=== PATIENT | male | born 2000 | race Caucasian/White ===

== ENCOUNTER 2023-03-05 18:28 | Inpatient (IN) | payer SELFPAY ==
[~2023-03-05] VITALS: Ht 172.7 cm; Wt 138.8 kg
[2023-03-06] MEDS ORDERED: SODIUM CHLORIDE 0.9% 1,000 ML IV ONE ×2 (00:15)
[2023-03-06 00:20] LABS: BASOPHILS % 0.1 % (0.0-2.0); DIFFERENTIAL COMMENT 0; EOSINOPHILS % 0.4 % (0.0-5.0); HEMATOCRIT. 43.8 % (42.0-52.0); HEMOGLOBIN. 14.4 g/dL (14.0-18.0); LYMPHOCYTES % 12.1 % (20.0-50.0); MEAN CORPUSCULAR HEMOGLOBIN 27.6 pg (28.0-32.0); MEAN CORPUSCULAR HGB CONC 32.9 g/dL (31.0-37.0); MEAN CORPUSCULAR VOLUME 83.8 fL (80.0-94.0); MEAN PLATELET VOLUME 12.4 fl (7.4-10.4); MONOCYTES % 10.7 % (2.0-8.0); NEUTROPHILS % 76.7 % (40.0-76.0); PLATELET 202 x1000/uL (130-400); RED BLOOD CELL COUNT 5.23 mill/uL (4.7-6.1); RED CELL DISTRIBUTION WIDTH 13.8 % (11.6-14.6); WHITE BLOOD COUNT 16.7 x1000/uL (4.5-11.0)
[2023-03-06 00:36] LABS: ALANINE AMINOTRANSFERASE 27 IU/L (10-49); ALBUMIN 4.6 g/dL (3.2-4.8); ASPARTATE AMINOTRANSFERASE 17 IU/L (<34); BILIRUBIN TOTAL 0.8 mg/dL (0.1-1.0); CALCIUM 9.1 mg/dL (8.7-10.4); CARBON DIOXIDE 23 mEq/L (21-32); CHLORIDE 101 mEq/L (98-107); CREATININE 0.8 mg/dL (0.6-1.3); GLUCOSE 117 mg/dL (70-105); PROTEIN TOTAL 8.7 g/dL (6.0-8.3); SODIUM 134 mEq/L (136-145); UREA NITROGEN BLOOD 9 mg/dL (9-23)
[2023-03-06 00:46] LABS: TROPONIN I HIGH SENSITIVITY < 4 ng/L (3.0-53)
[2023-03-06] MEDS ORDERED: AZITHROMYCIN 500MG/250ML 250 ML IV ONE (04:15)
[2023-03-06] MEDS ORDERED: CEFTRIAXONE 1GM PREMIX 50 ML IV ONE (04:15)
[2023-03-06] MEDS ORDERED: KETOROLAC 15MG/ML VIAL IV ONE (04:15)
[2023-03-06] MEDS ORDERED: GUAIFENESIN 200MG/10ML SUGAR FREE UDC PO PRN (08:00)
[2023-03-06] MEDS ORDERED: TRAMADOL 50MG TABLET PO PRN (08:00)
[2023-03-06] MEDS ORDERED: ACETAMINOPHEN 325MG TABLET PO PRN (08:00)
[2023-03-06] MEDS ORDERED: DOCUSATE SODIUM 100MG CAPSULE PO PRN (08:00)
[2023-03-06] MEDS ORDERED: SODIUM CHLORIDE 0.9% 1,000 ML IV SCH (08:00)
[2023-03-06] MEDS ORDERED: ONDANSETRON HCL 4MG/2ML INJ IV PRN (08:00)
[2023-03-06 09:00] VITALS: BP 103/64; PULSE 114; RESP 20; TEMP 99.3
[2023-03-06] MEDS: METOPROLOL TARTRATE 25MG TABLET PO SCH ×2 (11:36→18:08)
[2023-03-06 12:00] VITALS: BP 121/60; PULSE 101; RESP 22; TEMP 97
[2023-03-06 12:33] LABS: HEMATOCRIT. 40.1 % (42.0-52.0); HEMOGLOBIN. 13.1 g/dL (14.0-18.0); MEAN CORPUSCULAR HEMOGLOBIN 27.6 pg (28.0-32.0); MEAN CORPUSCULAR HGB CONC 32.7 g/dL (31.0-37.0); MEAN CORPUSCULAR VOLUME 84.4 fL (80.0-94.0); MEAN PLATELET VOLUME 12.3 fl (7.4-10.4); PLATELET 162 x1000/uL (130-400); RED BLOOD CELL COUNT 4.75 mill/uL (4.7-6.1); RED CELL DISTRIBUTION WIDTH 13.6 % (11.6-14.6); WHITE BLOOD COUNT 13.4 x1000/uL (4.5-11.0)
[2023-03-06 13:04] LABS: DIFFERENTIAL COMMENT 1
[2023-03-06 14:06] LABS: ALANINE AMINOTRANSFERASE 22 IU/L (10-49); ALBUMIN 4.3 g/dL (3.2-4.8); ASPARTATE AMINOTRANSFERASE 13 IU/L (<34); BILIRUBIN TOTAL 0.8 mg/dL (0.1-1.0); CALCIUM 8.9 mg/dL (8.7-10.4); CHLORIDE 104 mEq/L (98-107); CREATININE 0.7 mg/dL (0.6-1.3); GLUCOSE 93 mg/dL (70-105); POTASSIUM 3.8 mEq/L (3.5-5.1); PROTEIN TOTAL 7.1 g/dL (6.0-8.3); SODIUM 137 mEq/L (136-145); UREA NITROGEN BLOOD 9 mg/dL (9-23)
[2023-03-06 15:06] LABS: CARBON DIOXIDE 20 mEq/L (21-32)
[2023-03-06 16:00] VITALS: BP 125/57; PULSE 100; RESP 22; TEMP 98
[2023-03-06] MEDS ORDERED: NALOXONE HCL 0.4MG/ML VIAL IV PRN (16:45)
[2023-03-06 18:23] VITALS: BP 121/60; PULSE 105; TEMP 97.9; O2SAT 99
[2023-03-06 23:16] LABS: PLATELET ESTIMATE NORMAL
[2023-03-07] MEDS ORDERED: CEFTRIAXONE 1,000 MG in DEXTROSE 5% WATER 50 ML IV SCH (06:00)
[2023-03-07] MEDS ORDERED: CEFTRIAXONE 1GM PREMIX 50 ML IV SCH (06:00)
[2023-03-07] MEDS ORDERED: AZITHROMYCIN 500MG/250ML 250 ML IV SCH ×2 (06:00)
== END 2023-03-06 19:00 | disposition home or self-care (01) | DRG 145 ==
LOC: ER 18:28 → 8WST 03-06 04:05 → EDBEDREQTM 03-06 04:08 → EDBEDREQ 03-06 04:08
PROVIDERS: ADMIT Hospitalist; ATTEND Hospitalist
DX: J20.8 Acute bronchitis due to other specified organisms (principal); J18.9 Pneumonia, unspecified organism; D72.829 Elevated white blood cell count, unspecified; Z20.822 Contact with and (suspected) exposure to COVID-19
CPT/HCPCS: 36415; 71045; 80053; 83605; 84145; 84484; 85025; 87426; 87804; 93005; 99291; J0456; J0696; J1885; J7030